=== PATIENT | female | born 1980 | race African-American/Black ===

== ENCOUNTER 2018-12-12 07:12 | Inpatient (IN) ==
[2018-12-12] MEDS ORDERED: BUTORPHANOL 2 MG/ML VIAL IV PRN (07:36)
[2018-12-12] MEDS ORDERED: MEPERIDINE 50 MG/1 ML VIAL IV PRN (07:36)
[2018-12-12] MEDS ORDERED: ONDANSETRON 4 MG/2 ML VIAL IV PRN (07:36)
[2018-12-12] MEDS: LACTATED RINGERS 1,000 ML IV SCH ×2 (07:43→20:28)
[2018-12-12 08:01] LABS: Basophils % 0.3 % (0.0-0.8); Eosinophils % 0.2 % (0.00-10.9); Hematocrit 30.9 VOL% (35.7-47.0); Hemoglobin 9.9 GM/DL (12.0-16.0); Immature Granulocytes % 2.2 %; Immature Granulocytes Absolute 0.29 #; Lymphocytes # 3.3 10*3/uL (1.4-4.0); Lymphocytes % 25.2 % (21.3-54.2); Mean Corpuscular Hemoglobin 26 PG (27-34); Mean Corpuscular Volume 80.5 FL (87-102); Monocytes # 0.9 10*3/uL (0.11-0.8); Monocytes % 6.9 % (1.7-12.7); NRBC # 0.08 10*3/uL; Neutrophils # 8.5 10*3/uL (1.4-7.4); Neutrophils % 65.2 % (38.7-73.9); Platelet Count 289 T/CUMM (130-400); Red Blood Count 3.84 MC/CUMM (3.8-5.5); Red Cell Distribution Width 15.2 % (9.3-17.3); White Blood Count 13.1 T/CUMM (4-12)
[2018-12-12] MEDS: OXYTOCIN/LR 20 UNIT/1,000 ML BAG IV SCH (08:04)
[2018-12-12] MEDS ORDERED: FAMOTIDINE 20 MG/2 ML VIAL IV ONE (09:28)
[2018-12-12] MEDS ORDERED: NALOXONE 0.4 MG/ML VIAL IV PRN (09:28)
[2018-12-12] MEDS ORDERED: CITRIC ACID/SODIUM CITRATE 30 ML UDCUP PO ONE (09:28)
[2018-12-12] MEDS ORDERED: hydrOXYzine HCL 25 MG/1 ML VIAL IM PRN (09:28)
[2018-12-12] MEDS ORDERED: ePHEDrine 50 MG/ML AMP IV PRN (09:28)
[2018-12-12] MEDS ORDERED: LACTATED RINGERS 1,000 ML IV ONE (09:28)
[2018-12-12] MEDS ORDERED: PROMETHAZINE 25 MG/1 ML VIAL IM ONE (09:28)
[2018-12-12] MEDS ORDERED: ONDANSETRON 4 MG/2 ML VIAL IV ONE (09:28)
[2018-12-12] MEDS ORDERED: LACTATED RINGERS 500 ML IV ONE (09:28)
[2018-12-12] MEDS ORDERED: diphenhydrAMINE 50 MG/1 ML VIAL IV PRN ×2 (09:28)
[2018-12-12] MEDS: fentaNYL 2 MCG/ROPIV 0.2% EPID 100 ML EPIDURAL SCH ×2 (11:46→20:27)
[2018-12-12 12:21] LABS: Apearance,Urine CLEAR (Clear); Bilirubin,Urine Negative (Negative); Blood, Urine Negative (Negative); Glucose,Urine (UA) Negative (Negative); Ketones,Urine Negative (Negative); Nitrite,Urine Negative (Negative); Protein,Urine Negative; RBC,Urine <1 /HPF (0-4); Squamous Epithelial Cell,Urine Occasional /HPF (0-10); Urine Color Straw (Yellow); Urine Specific Gravity 1.004 (1.001-1.035); Urine Urobilinogen < 2.0 EU/DL (0.2-1.0); WBC,Urine 1 /HPF (0-6)
[2018-12-13] MEDS ORDERED: miSOPROStol 200 MCG TABLET ONE (01:13)
[2018-12-13] MEDS ORDERED: LIDOCAINE 1% 50 ML VIAL ONE (01:13)
[2018-12-13] MEDS ORDERED: TRANEXAMIC ACID 1,000 MG/10 ML VIAL ONE (01:14)
[2018-12-13] MEDS ORDERED: METHYLERGONOVINE 0.2 MG/1 ML AMP ONE (01:14)
[2018-12-13] MEDS ORDERED: CARBOPROST TROMETHAMINE 250 MCG/ML AMP IM ONE (01:15)
[2018-12-13] MEDS: fentaNYL 2 MCG/ROPIV 0.2% EPID 100 ML EPIDURAL SCH (02:57)
[2018-12-13] MEDS: LACTATED RINGERS 1,000 ML IV SCH (06:15)
[2018-12-13] MEDS: OXYTOCIN/LR 20 UNIT/1,000 ML BAG IV SCH (06:16)
[2018-12-13] MEDS ORDERED: MEASLES/MUMPS/RUBELLA VACCINE 0.5 ML VIAL SUBCUT ONE (07:27)
[2018-12-13] MEDS ORDERED: ACETAMINOPHEN 325 MG TABLET PO PRN (07:27)
[2018-12-13] MEDS ORDERED: DIPH/TET/ACEL PERT BOOSTER VACCINE 0.5 ML VIAL IM ONE (07:27)
[2018-12-13] MEDS ORDERED: ONDANSETRON 4 MG/2 ML VIAL IV PRN (07:27)
[2018-12-13] MEDS ORDERED: BENZOCAINE 20%/MENTHOL 0.5% SPRAY 56 GM CAN TOP PRN (07:27)
[2018-12-13] MEDS ORDERED: OXYTOCIN/LR 20 UNIT/1,000 ML BAG IV ONE (07:27)
[2018-12-13] MEDS ORDERED: HYDROCORTISONE 2.5% RECTAL CREAM 30 GM TUBE TOP PRN (07:27)
[2018-12-13] MEDS ORDERED: oxyCODONE/ACETAMINOPHEN 5-325 MG TABLET PO PRN ×2 (07:27)
[2018-12-13] MEDS ORDERED: BISACODYL 10 MG SUPP RECTAL PRN (07:27)
[2018-12-13] MEDS ORDERED: RHO(D) IMMUNE GLOBULIN 300 MCG SYRINGE IM ONE (07:27)
[2018-12-13] MEDS ORDERED: WITCH HAZEL PADS 100/JAR TOP PRN (07:27)
[2018-12-13] MEDS ORDERED: LANOLIN 50% CREAM 0.3 OZ TUBE TOP PRN (07:27)
[2018-12-13] MEDS: IBUPROFEN 800 MG TABLET PO PRN (08:30)
[2018-12-13] MEDS: DOCUSATE SODIUM 100 MG CAPSULE PO SCH ×2 (15:50→21:07)
[2018-12-14] MEDS: IBUPROFEN 800 MG TABLET PO PRN ×3 (00:21→17:37)
[2018-12-14] MEDS: OXYTOCIN/LR 20 UNIT/1,000 ML BAG IV SCH (01:17)
[2018-12-14] MEDS: LACTATED RINGERS 1,000 ML IV SCH (01:17)
[2018-12-14 06:14] LABS: Basophils % 0.2 % (0.0-0.8); Eosinophils # 0.1 10*3/uL (0.0-0.87); Eosinophils % 0.4 % (0.00-10.9); Hematocrit 25.3 VOL% (35.7-47.0); Hemoglobin 8.1 GM/DL (12.0-16.0); Immature Granulocytes % 0.8 %; Immature Granulocytes Absolute 0.13 #; Lymphocytes # 4.3 10*3/uL (1.4-4.0); Lymphocytes % 27.4 % (21.3-54.2); Mean Corpuscular Hemoglobin 26 PG (27-34); Mean Corpuscular Volume 79.6 FL (87-102); Mean Platelet Volume 9.9 FL (9.6-12.0); Monocytes # 0.8 10*3/uL (0.11-0.8); Monocytes % 5.2 % (1.7-12.7); NRBC # 0.02 10*3/uL; Neutrophils # 10.4 10*3/uL (1.4-7.4); Platelet Count 240 T/CUMM (130-400); Red Blood Count 3.18 MC/CUMM (3.8-5.5); Red Cell Distribution Width 15.3 % (9.3-17.3); White Blood Count 15.8 T/CUMM (4-12)
[2018-12-14] MEDS: DOCUSATE SODIUM 100 MG CAPSULE PO SCH ×2 (08:56→21:41)
[2018-12-14] MEDS: MAGNESIUM HYDROXIDE SUSP 30 ML UDCUP PO PRN ×2 (13:33→21:44)
[2018-12-15] MEDS: LACTATED RINGERS 1,000 ML IV SCH (02:10)
[2018-12-15] MEDS: OXYTOCIN/LR 20 UNIT/1,000 ML BAG IV SCH (02:11)
[2018-12-15] MEDS: IBUPROFEN 800 MG TABLET PO PRN (07:24)
[2018-12-15 07:32] VITALS: BP 134/96
[2018-12-15] MEDS: DOCUSATE SODIUM 100 MG CAPSULE PO SCH (09:30)
== END 2018-12-15 11:26 | disposition home or self-care (01) | DRG 560 ==
LOC: N.LDOUT 07:12 → N.LD 07:13 → N.OB 12-13 10:28
PROVIDERS: ADMIT Obstetrics & Gynecology; ATTEND Obstetrics & Gynecology